=== PATIENT | female | born 1955 | race Caucasian/White ===

== ENCOUNTER 2018-08-31 18:09 | Emergency (ER) | payer OTHER ==
[2018-08-31] MEDS ORDERED: KETOROLAC 30 MG/ML VIAL ONE (21:01)
[2018-08-31] MEDS ORDERED: KETOROLAC 30 MG/ML VIAL IM ONE (21:05)
[2018-08-31 21:46] VITALS: BP 138/79
== END 2018-08-31 21:46 | disposition home or self-care (01) ==
LOC: MED 18:09
DX: M25.561 Pain in right knee (principal); J45.909 Unspecified asthma, uncomplicated; E11.9 Type 2 diabetes mellitus without complications; I10 Essential (primary) hypertension
CPT/HCPCS: 73562; 96372; 99283; J1885; Q0092

== ENCOUNTER 2020-04-06 19:32 | Emergency (ER) | payer OTHER ==
[~2020-04-06] VITALS: Ht 154.9 cm; Wt 91.6 kg
[2020-04-06 19:43] VITALS: BP 122/92
--- NOTE | 2020-04-06 19:48 | NUR ---
PT TAKEN TO BED 11
--- NOTE | 2020-04-06 19:57 | NUR ---
Dr. Gaytan examining patient.
--- NOTE | 2020-04-06 19:58 | NUR ---
64 Y/O FEMALE 05/06 RUQ PAIN X2 WEEKS RADIATES TO LOWER BACK. PT STATES SHE HAS NAUSEA NO V/D. TOOK 600MG IBUPROFEN AT 1300 WITH NO RELIEF OF SYMPTOMS. MED HX: HTN, DM2, ASTHMA NKA RX: METFORMIN, VIT D3, METOPROLOL
--- NOTE | 2020-04-06 20:21 | NUR ---
ULTRASOUND AT BEDSIDE
[2020-04-06 20:35] LABS: APPEARANCE,URINE HAZY (CLEAR); BILIRUBIN,URINE NEGATIVE (NEGATIVE); BLOOD, URINE TRACE-I (NEGATIVE); COLOR,URINE YELLOW (YELLOW); LEUKOCYTE ESTERASE ,URINE 3+ (NEGATIVE); NITRITE, URINE NEGATIVE (NEGATIVE); UGLUCOSE NEGATIVE (NEGATIVE)
[2020-04-06 20:40] LABS: WBC,URINE 60-80 /HPF (0-5)
[2020-04-06 20:41] LABS: COARSE GRANULAR CASTS,URINE 0-10 /LPF (None Seen)
[2020-04-06 20:46] LABS: BASOPHILS % (AUTO) 0.4 % (0.0-2.0); EOSINOPHILS # (AUTO) 0.2 K/uL (0-0.4); EOSINOPHILS % (AUTO) 1.8 % (0.0-4.0); HEMATOCRIT 33.1 % (36-48); HEMOGLOBIN 10.8 g/dL (12.0-16.0); LYMPHOCYTES # (AUTO) 2.8 K/uL (2.5-16.5); LYMPHOCYTES % (AUTO) 21.4 % (20.5-51.1); MEAN CORPUSCULAR HEMOGLOBIN 27 pg (27-31); MEAN CORPUSCULAR HGB CONC 33 g/dL (33-37); MEAN CORPUSCULAR VOLUME 83.9 fL (80-94); MONOCYTES # (AUTO) 1.1 K/uL (0.8-1.0); MONOCYTES % (AUTO) 8.5 % (1.7-9.3); NEUTROPHILS # (AUTO) 8.9 K/uL (1.8-7.7); NEUTROPHILS % (AUTO) 67.9 % (42.2-75.2); PLATELET COUNT (AUTO) 303 K/uL (140-450); RED BLOOD CELL COUNT(AUTO) 3.94 MIL/uL (4.20-5.40); RED CELL DISTRIBUTION WIDTH 15.3 % (11.6-13.7)
[2020-04-06 20:55] LABS: ANION GAP 11.5 (8-16); CARBON DIOXIDE 31.6 mmol/L (21-32); CREATININE 0.9 mg/dL (0.6-1.3); POTASSIUM 3.1 mmol/L (3.5-5.1)
[2020-04-06 21:01] LABS: ALBUMIN 2.9 g/dL (3.4-5.0); TOTAL BILIRUBIN 0.3 mg/dL (0.0-1.0)
[2020-04-06 21:41] VITALS: BP 122/92
== END 2020-04-06 21:41 | disposition home or self-care (01) ==
LOC: MED 19:32
DX: N39.0 Urinary tract infection, site not specified (principal); R93.89 Abnormal findings on diagnostic imaging of other specified body structures; E11.9 Type 2 diabetes mellitus without complications; I10 Essential (primary) hypertension; J45.909 Unspecified asthma, uncomplicated
CPT/HCPCS: 36415; 76705; 80053; 81001; 85025; 87086; 99284; Q0092

== ENCOUNTER 2020-07-18 11:25 | Inpatient (IN) | payer OTHER, SELFPAY ==
[~2020-07-18] VITALS: Ht 160 cm; Wt 90.7 kg
[2020-07-18 11:30] VITALS: BP 119/54
--- NOTE | 2020-07-18 11:36 | NUR ---
TANK. HANDED ON URINE CUP.
--- NOTE | 2020-07-18 12:36 | NUR ---
65/F BIB DAUGHTER C/O LEFT BUTTOCK PAIN X3 WEEKS. BLOOD SUGAR 178 AT THIS TIME. PMH: DM,HTN
--- NOTE | 2020-07-18 13:14 | NUR ---
PT PLACED IN BED 9
[2020-07-18] MEDS ORDERED: NACL 0.9% 1,000 ML IV ONE (13:55)
[2020-07-18] MEDS: SODIUM CHLORIDE FLUSH 10 ML SYR IVF SCH (13:58)
[2020-07-18] MEDS ORDERED: VANCOMYCIN 1,000 MG in DEXTROSE 5% 250 ML IV ONE (14:00)
[2020-07-18 14:01] LABS: HEMATOCRIT 32.4 % (36-48); HEMOGLOBIN 10.5 g/dL (12.0-16.0); MEAN CORPUSCULAR HEMOGLOBIN 27 pg (27-31); MEAN CORPUSCULAR HGB CONC 32 g/dL (33-37); MEAN CORPUSCULAR VOLUME 83.2 fL (80-94); PLATELET COUNT (AUTO) 354 K/uL (140-450); RED CELL DISTRIBUTION WIDTH 15.6 % (11.6-13.7); WHITE BLOOD COUNT (AUTO) 20.6 K/uL (4.8-10.8)
[2020-07-18 14:24] LABS: ALBUMIN 2.5 g/dL (3.4-5.0); ANION GAP 15.3 (8-16); CARBON DIOXIDE 24.3 mmol/L (21-32); CREATININE 1.8 mg/dL (0.6-1.3); POTASSIUM 3.6 mmol/L (3.5-5.1); TOTAL BILIRUBIN 0.2 mg/dL (0.0-1.0)
[2020-07-18 14:35] LABS: PROTHROMBIN TIME 10.7 secs (10.8-13.4)
[2020-07-18] MEDS ORDERED: VANCOMYCIN 1,000 MG VIAL ONE (14:47)
[2020-07-18 14:52] LABS: LYMPHOCYTES % (MANUAL) 4 % (20-46); MONOCYTES % (MANUAL) 2 % (5-12)
[2020-07-18] MEDS ORDERED: MORPHINE SULFATE 4 MG/ML SYR IVP SCH (15:30)
[2020-07-18 16:00] VITALS: BP 112/62
--- NOTE | 2020-07-18 16:38 | NUR ---
PER DR SANDY, PT ORDERED NPO AFTER MIDNIGHT AND WILL GO INTO SURGERY TOMORROW MORNING
[2020-07-18] MEDS ORDERED: ONDANSETRON 4 MG/2 ML VIAL IVP PRN (16:45)
[2020-07-18] MEDS ORDERED: ACETAMINOPHEN 325 MG TAB PO PRN (16:45)
[2020-07-18] MEDS ORDERED: VANCOMYCIN PER PHARMACY MC PRN (16:45)
[2020-07-18] MEDS ORDERED: HYDROcodone/APAP 5/325 MG 1 TAB TAB PO PRN (16:45)
[2020-07-18] MEDS ORDERED: LORazepam 1 MG TAB PO PRN (16:45)
[2020-07-18] MEDS ORDERED: MAG SULF 2000 MG/WATER PREMIX 50 ML IV PRN (16:45)
[2020-07-18] MEDS ORDERED: MORPHINE SULFATE 4 MG/ML SYR IVP PRN (16:45)
[2020-07-18] MEDS ORDERED: POTASSIUM CHLORIDE 10 MEQ TABER PO PRN (16:45)
[2020-07-18] MEDS ORDERED: KCL 20 MEQ/WATER INJ PREMIX 200 ML IV PRN (16:45)
[2020-07-18] MEDS ORDERED: DEXTROSE 50% 50 ML SYR IVP PRN (16:50)
[2020-07-18] MEDS: NACL 0.9% 1,000 ML IV SCH (17:06)
[2020-07-18 18:02] VITALS: BP 98/56
--- NOTE | 2020-07-18 18:02 | NUR ---
FULLY AWAKE, VITAL SIGNS TAKEN AND RECORDED, STABLE AND DENIES PAIN NOTED.
--- NOTE | 2020-07-18 19:30 | NUR ---
RECEIVED REPORT FROM PATRICIA KIMBLE FOR CONTINUATION OF CARE
--- NOTE | 2020-07-18 19:35 | NUR ---
ENDORSED TO MACHINES TECHNICIAN IN STABLE CONDITION FOR CONTINUITY OF CARE
--- NOTE | 2020-07-18 20:07 | NUR ---
PT HAS AN ORAL TEMP OF 100.7--- PRN TYLENOL TO BE ADMIN
--- NOTE | 2020-07-18 21:00 | NUR ---
PT LAYING SUPINE. HOB IN LOW-FOWLERS POSITION. RISE AND FALL OF CHEST NOTED. PT CONNECTED TO THE CONTRACT SPECIALIST. PT IS NOT IN ANY ACUTE DISTRESS AT THIS TIME. BED IS LOCKED AND IN LOWEST POSITION. SIDE RAILSX1. WILL CONTINUE TO MONITOR.
[2020-07-18] MEDS: BLOOD GLUCOSE MONITORING 1 DEV DEV FS SCH (21:47)
[2020-07-18] MEDS: INSULIN LISPRO SLIDING SCALE 100 UNITS/ML VIAL SUBQ PRN (21:52)
--- NOTE | 2020-07-18 22:00 | NUR ---
PT LAYING SUPINE. HOB IN LOW-FOWLERS POSITION. RISE AND FALL OF CHEST NOTED. PT CONNECTED TO THE CERTIFIED PHLEBOTOMY TECHNICIAN. PT IS NOT IN ANY ACUTE DISTRESS AT THIS TIME. BED IS LOCKED AND IN LOWEST POSITION. SIDE RAILSX1. CALL LIGHT WITHIN REACH . WILL CONTINUE TO MONITOR.
[2020-07-19] VITALS: BP 116/69
--- NOTE | 2020-07-19 | NUR ---
PT LAYING ON HER RIGHT SIDE. HOB IN LOW-FOWLERS POSITION. RISE AND FALL OF CHEST NOTED. PT CONNECTED TO THE EDITOR MAGAZINE. PT IS NOT IN ANY ACUTE DISTRESS AT THIS TIME. BED IS LOCKED AND IN LOWEST POSITION. SIDE RAILSX1. WILL CONTINUE TO MONITOR.
--- NOTE | 2020-07-19 01:19 | NUR ---
PT LAYING ON HER RIGHT SIDE. HOB IN LOW-FOWLERS POSITION. RISE AND FALL OF CHEST NOTED. PT CONNECTED TO THE SQL SERVER DBA DEVELOPER. PT IS NOT IN ANY ACUTE DISTRESS AT THIS TIME. BED IS LOCKED AND IN LOWEST POSITION. SIDE RAILSX1. CALL LIGHT WITHIN REACH. WILL CONTINUE TO MONITOR.
--- NOTE | 2020-07-19 03:30 | NUR ---
PT AMBULATED TO BEDSIDE COMMODE WITH STEADY GAIT.
--- NOTE | 2020-07-19 03:39 | NUR ---
PT AMBULATED BACK TO BED FROM BEDSIDE COMMODE. PT VOIDED CLEAR YELLOW URINE.
--- NOTE | 2020-07-19 03:40 | NUR ---
PT RECONNECTED TO MOTOR VEHICLE SALESPERSON.
--- NOTE | 2020-07-19 04:04 | NUR ---
PT REQUESTED WATER. UNABLE TO PROVIDE HER WITH WATER DUE TO NPO STATUS. PT MADE AWARE AND VERBALIZED UNDERSTANDING.
--- NOTE | 2020-07-19 04:55 | NUR ---
[facility] SWAB COLLECTED AND WALKED OVER TO LAB
--- NOTE | 2020-07-19 05:03 | NUR ---
SPOKE WITH THE PT'S DAUGHTER-KIKO LITTLE TO UPDATE HER ON THE PTS STATUS AND ADMISSION TO THE HOSPITAL. DAUGHTER IS AWARE THAT THE PT MAY UNDERGO SURGERY TODAY 07/19/20.
[2020-07-19] MEDS: SODIUM CHLORIDE FLUSH 10 ML SYR IVF SCH ×3 (05:05→21:19)
[2020-07-19] MEDS: NACL 0.9% 1,000 ML IV SCH ×4 (05:06→18:21)
--- NOTE | 2020-07-19 05:10 | NUR ---
PT LAYING SUPINE. HOB IN LOW-FOWLERS POSITION. RISE AND FALL OF CHEST NOTED. PT CONNECTED TO THE NOZZLE WORKER. PT IS NOT IN ANY ACUTE DISTRESS AT THIS TIME. BED IS LOCKED AND IN LOWEST POSITION. SIDE RAILSX1. WILL CONTINUE TO MONITOR. CALL LIGHT WITHIN REACH
--- NOTE | 2020-07-19 06:00 | NUR ---
PT LAYING SUPINE. HOB IN LOW-FOWLERS POSITION. RISE AND FALL OF CHEST NOTED. PT CONNECTED TO THE CONTAINER MAKER. PT IS NOT IN ANY ACUTE DISTRESS AT THIS TIME. BED IS LOCKED AND IN LOWEST POSITION. SIDE RAILSX1. WILL CONTINUE TO MONITOR. CALL LIGHT WITHIN REACH
--- NOTE | 2020-07-19 07:34 | NUR ---
RECIEVED REPORT FROM PATRICIA CABELLO. TRANSFER OF CARE AT THIS TIME.
--- NOTE | 2020-07-19 07:35 | NUR ---
GAVE REPORT TO PATRICIA AGUIRRE FOR TRANSFER OF CARE AT THIS TIME.
[2020-07-19] MEDS ORDERED: HYDROGEN PEROXIDE 3% 240 ML BTL TP ONE (07:57)
--- NOTE | 2020-07-19 08:10 | NUR ---
PT STATES 9/10 LOWER ABDOMINAL PAIN. MEDICATED WITH PRN
[2020-07-19] MEDS: BLOOD GLUCOSE MONITORING 1 DEV DEV FS SCH ×4 (08:15→21:13)
--- NOTE | 2020-07-19 08:15 | NUR ---
GAVE REPORT TO SURGERY RN
--- NOTE | 2020-07-19 08:28 | NUR ---
PT TAKEN TO OR VIA [facility]
[2020-07-19] MEDS: DOCUSATE SODIUM 100 MG GELCAP PO SCH (08:32)
[2020-07-19] MEDS ORDERED: ONDANSETRON 4 MG/2 ML VIAL IVP PRN (08:40)
[2020-07-19] MEDS ORDERED: diphenhydrAMINE 50 MG/ML VIAL IVP PRN (08:40)
[2020-07-19] MEDS ORDERED: MEPERIDINE 25 MG/ML SYR IVP PRN (08:40)
[2020-07-19] MEDS ORDERED: HYDROmorphone 1 MG/ML AMP IVP PRN (08:40)
[2020-07-19] MEDS ORDERED: PIPERACILLIN/TAZOBACTAM 3.375 GM VIAL IV ONE (08:53)
[2020-07-19] MEDS ORDERED: PROPOFOL 200 MG/20 ML VIAL IV ONE (09:00)
[2020-07-19] MEDS ORDERED: fentaNYL citrate 0.05 MG/ML VIAL ONE (09:00)
[2020-07-19] MEDS ORDERED: ONDANSETRON 4 MG/2 ML VIAL ONE (09:00)
[2020-07-19] MEDS ORDERED: SEVOFLURANE 250 ML BTL INH ONE (09:00)
[2020-07-19] MEDS ORDERED: MIDAZOLAM 2 MG/2 ML VIAL ONE (09:00)
[2020-07-19] MEDS ORDERED: DEXAMETHASONE 4 MG/ML VIAL ONE (09:00)
[2020-07-19 09:07] LABS: BASOPHILS # (AUTO) 0.1 K/uL (0.00-0.22); BASOPHILS % (AUTO) 0.4 % (0.0-2.0); EOSINOPHILS # (AUTO) 0.1 K/uL (0-0.4); EOSINOPHILS % (AUTO) 0.6 % (0.0-4.0); HEMOGLOBIN 9.9 g/dL (12.0-16.0); LYMPHOCYTES # (AUTO) 1.6 K/uL (2.5-16.5); LYMPHOCYTES % (AUTO) 7.8 % (20.5-51.1); MEAN CORPUSCULAR HEMOGLOBIN 28 pg (27-31); MEAN CORPUSCULAR HGB CONC 33 g/dL (33-37); MEAN CORPUSCULAR VOLUME 83.5 fL (80-94); MONOCYTES # (AUTO) 1.5 K/uL (0.8-1.0); MONOCYTES % (AUTO) 7.7 % (1.7-9.3); NEUTROPHILS # (AUTO) 16.6 K/uL (1.8-7.7); NEUTROPHILS % (AUTO) 83.5 % (42.2-75.2); PLATELET COUNT (AUTO) 372 K/uL (140-450); RED CELL DISTRIBUTION WIDTH 15.9 % (11.6-13.7); WHITE BLOOD COUNT (AUTO) 19.9 K/uL (4.8-10.8)
[2020-07-19 10:01] LABS: ALBUMIN 2.1 g/dL (3.4-5.0); CARBON DIOXIDE 23.8 mmol/L (21-32); CREATININE 0.9 mg/dL (0.6-1.3); MAGNESIUM 1.4 mg/dL (1.8-2.4); TOTAL BILIRUBIN 0.3 mg/dL (0.0-1.0)
[2020-07-19 10:08] LABS: ANION GAP 17.2 (8-16)
[2020-07-19 10:35] VITALS: BP 96/62
--- NOTE | 2020-07-19 10:35 | NUR ---
RECEIVED REPORT FROM OR NURSE YAJAIRA PATIENT IS AAOX4 ON ROOM AIR, AMBULATORY, ON CLEAR LIQUID DIET, S/P I&D OF THE LEFT BUTTUCKS INTACT BY DR KUNZ, IV INTACT ON RIGHT AC LATEST BLOOD SUGAR IS 120MG/DL. ASSISTED TO BED, ORIENTED TO ROOM, SAFETY MEASURES IN PLACE AND CALL LIGHT WITHIN REACH. WILL CONTINUE TO MONITOR.
--- NOTE | 2020-07-19 11:30 | NUR ---
BLOOD SUGAR AR 129 MG/DL NO INSULIN COVERAGE GIVEN.
--- NOTE | 2020-07-19 11:39 | NUR ---
SOLANGE CRYSTAL: HOME HEALTH FOR WOUND CARE HAS BEEN DISCUSSED. SENT PATIENTS CLINICALS TO [facility] [phone] Addendum: 07/19/20 at 1425 by Carlota Shields CM SOLANGE CRYSTAL: SPOKE TO SHERITA AT [facility] [phone]. SHE IS REVIEWING WILL CALL ME BACK Addendum: 07/19/20 at 1645 by Carlota Shields CM SOLANGE CRYSTAL: FOLLOWED UP WITH SHERITA AT [facility] THEY ARE ABLE TO ACCEPT THIS PATIENT.
[2020-07-19] MEDS ORDERED: VANCOMYCIN HCL 1.25 GM in DEXTROSE 5% 250 ML IV SCH (12:00)
--- NOTE | 2020-07-19 12:00 | NUR ---
MEDICATION DUE GIVEN AND VITAL SIGNS TAKEN BP 111/74 IL 85.
[2020-07-19] MEDS: VANCOMYCIN 1,000 MG in DEXTROSE 5% 250 ML IV SCH ×2 (12:04→23:00)
--- NOTE | 2020-07-19 13:00 | NUR ---
NOT ABLE TO TAKE PICTURE OF THE WOUND PATIENT COMPLAINS OF PAIN UPON MOVEMENT.
--- NOTE | 2020-07-19 13:18 | NUR ---
SOCIAL WORK NOTE: Patient's Orientation Unable To Assess Information Provided By KIKO HANSON - DAUGHTER Comments SW WAS UNABLE TO MEET PATIENT AT BEDSIDE DUE TO MEDICAL CONDITION. SW COMPLETED ASSESSMENT WITH PATIENT'S DAUGHTER, KIKO. Medical Staff Manager, Realtionship and Phone Number KIKO HANSON DAUGHTER [phone] [facility] Power of Golf Cart Mechanic No Does Patient Have a POLST No Identifying Problems No Social Work Triggers Is A Social Work Consult Needed No Mandate Report Filed No Explanation Of Identifying Problems PATIENT IS A 65-YEAR-OLD FEMALE ADMITTED FOR GLUTEAL CELLULITIS. PATIENT HAS PMHX OF ASTHMA, DIABETES, AND HYPERTENSION. PATIENT'S DAUGHTER REPORTED THAT PATIENT HAS NO HISTORY OF SUBSTANCE ABUSE OR MENTAL HEALTH. Admitted From Home Pre-Admission Level Of Functioning Status Independent/Ambulatory Prior Resources/Services Used In Last 12 Months No Prior Resources Used Prior DME No Prior DME Used Dialysis Comments N/A Living Situation Apartment Lives With Family Patient Had Caregiver No Home Support No Caregiver Issues Financial Issues No Known Financial Issue Referral To The Financial Counselor Needed No Factors/Needs No D/C Needs Identified Pt/Rep Participated In Discharge Plan Yes Patient/Family Agress With Discharge Plan Yes Discharge Plan Comments TENTATIVE DISCHARGE PLAN IS FOR PATIENT TO RETURN HOME. DC Plan Status Initiated
[2020-07-19] MEDS: PIPERACILLIN/TAZOBACTAM 2.25 GM in DEXTROSE 5% 50 ML IV SCH ×2 (13:31→17:23)
[2020-07-19 16:00] VITALS: BP 115/69
--- NOTE | 2020-07-19 16:13 | NUR ---
PATIENT HAS BEEN SCREENED AND CATEGORIZED MODERATE NUTRITION RISK. PATIENT WILL BE SEEN WITHIN 3-5 DAYS OF ADMISSION. 07/21/20 07/23/[address]
[2020-07-19] MEDS: INSULIN LISPRO SLIDING SCALE 100 UNITS/ML VIAL SUBQ PRN (16:25)
--- NOTE | 2020-07-19 16:30 | NUR ---
BLOOD SUGAR 240 INSULIN COVERAGE GIVEN.
--- NOTE | 2020-07-19 17:00 | NUR ---
MEDICATION DUE GIVEN NO DISTRESS NOTED.
--- NOTE | 2020-07-19 19:38 | NUR ---
ENDORSED TO NIGHT NURSE FOR CONTINUITY OF CARE. PT IS STABLE
[2020-07-20] MEDS ORDERED: VANCOMYCIN 1,000 MG VIAL ONE (00:11)
[2020-07-20] MEDS: NACL 0.9% 1,000 ML IV SCH ×3 (01:24→09:40)
[2020-07-20] MEDS: SODIUM CHLORIDE FLUSH 10 ML SYR IVF SCH ×2 (05:00→12:55)
[2020-07-20] MEDS ORDERED: PIPERACILLIN/TAZOBACTAM 2.25 GM VIAL IV ONE (05:41)
[2020-07-20 06:00] VITALS: BP 100/62
[2020-07-20] MEDS: PIPERACILLIN/TAZOBACTAM 2.25 GM in DEXTROSE 5% 50 ML IV SCH ×4 (06:13→11:51)
--- NOTE | 2020-07-20 07:15 | NUR ---
REC'D REPORT FROM LEAD SUPPLY WORKER NURSE. PT STABLE, RESTING. CALL LIGHT WITHIN REACH.
[2020-07-20] MEDS: BLOOD GLUCOSE MONITORING 1 DEV DEV FS SCH ×2 (07:30→11:30)
[2020-07-20 08:00] VITALS: BP 126/75
[2020-07-20 09:41] LABS: BASOPHILS % (AUTO) 0.2 % (0.0-2.0); EOSINOPHILS % (AUTO) 0.2 % (0.0-4.0); HEMOGLOBIN 9.8 g/dL (12.0-16.0); LYMPHOCYTES # (AUTO) 1.7 K/uL (2.5-16.5); LYMPHOCYTES % (AUTO) 9.5 % (20.5-51.1); MEAN CORPUSCULAR HEMOGLOBIN 27 pg (27-31); MEAN CORPUSCULAR HGB CONC 33 g/dL (33-37); MEAN CORPUSCULAR VOLUME 83.1 fL (80-94); MONOCYTES % (AUTO) 5.8 % (1.7-9.3); NEUTROPHILS # (AUTO) 14.9 K/uL (1.8-7.7); NEUTROPHILS % (AUTO) 84.3 % (42.2-75.2); PLATELET COUNT (AUTO) 409 K/uL (140-450); RED CELL DISTRIBUTION WIDTH 15.9 % (11.6-13.7); WHITE BLOOD COUNT (AUTO) 17.7 K/uL (4.8-10.8)
[2020-07-20 10:42] LABS: ANION GAP 12.7 (8-16); CREATININE 0.9 mg/dL (0.6-1.3); MAGNESIUM 1.6 mg/dL (1.8-2.4); POTASSIUM 3.7 mmol/L (3.5-5.1); TOTAL BILIRUBIN 0.2 mg/dL (0.0-1.0)
[2020-07-20] MEDS: VANCOMYCIN 1,000 MG in DEXTROSE 5% 250 ML IV SCH (11:00)
[2020-07-20] MEDS: DOCUSATE SODIUM 100 MG GELCAP PO SCH (11:50)
[2020-07-20 12:00] VITALS: BP 110/67
[2020-07-20] MEDS: INSULIN LISPRO SLIDING SCALE 100 UNITS/ML VIAL SUBQ PRN (12:55)
[2020-07-20] MEDS ORDERED: CLIN-178 PO (12:57)
[2020-07-20] MEDS ORDERED: ACET-1182 PO (12:57)
[2020-07-20] MEDS ORDERED: ACET-9525 PO (12:57)
--- NOTE | 2020-07-20 13:00 | NUR ---
I let the patient know that there are discharge orders, patient states her daughter Lory will be the one picking her up to go home. Will follow up with her and get her discharge packet ready.
--- NOTE | 2020-07-20 13:41 | NUR ---
spoke to patient's daughter, Elana, regarding discharge orders. She will sisal picker the patient for home discharge. I educated her on follow up and medication for pain she will be discharged with. No questions at this time.
[2020-07-20 13:54] VITALS: BP 110/67
== END 2020-07-20 15:00 | disposition home or self-care (01) | DRG 720 ==
LOC: MED 11:25 → MTU 16:47
PROVIDERS: ADMIT Hospitalist; ATTEND Hospitalist
PROC: 0Y910ZZ Drainage of Left Buttock, Open Approach (ICD-10-PCS; principal; 2020-07-19 08:30)
DX: A41.9 Sepsis, unspecified organism (principal); E43 Unspecified severe protein-calorie malnutrition; L02.31 Cutaneous abscess of buttock; L03.317 Cellulitis of buttock; E66.01 Morbid (severe) obesity due to excess calories; D72.829 Elevated white blood cell count, unspecified; D64.9 Anemia, unspecified; J45.909 Unspecified asthma, uncomplicated; Z68.35 Body mass index [BMI] 35.0-35.9, adult; E11.22 Type 2 diabetes mellitus with diabetic chronic kidney disease; I12.9 Hypertensive chronic kidney disease with stage 1 through stage 4 chronic kidney disease, or unspecified chronic kidney disease; N18.30 Chronic kidney disease, stage 3 unspecified
CPT/HCPCS: 36415; 71045; 76881; 80053; 82948; 83036; 83735; 85025; 85610; 85730; 86886; 86900; 86901; 87040; 87070; 87075; 87081; 87186; 87205; 96361; 96374; 99285; J1100; J1815; J2250; J2270; J2405; J2543; J2704; J3010; J3370; J7060